=== PATIENT | female | born 1990 | race Caucasian/White ===

== ENCOUNTER 2019-12-07 05:36 | Outpatient (RCR) | payer MEDICAID ==
[~2019-12-07] VITALS: Ht 160 cm; Wt 79.7 kg
[~2019-12-07 05:36] MED LIST: AC500T PO; ACHD5005 PO; CETI10TA21 PO; FLUT9.9S NSEACH; NITR100C PO; ONDA8TAB9 PO; PEDI100T PO; PNV1CAPS42 PO
[2019-12-07 08:26] VITALS: BP 107/64
[2019-12-07 09:10] LABS: BASOPHILS % (AUTO) 0 % (0-10); EOSINOPHILS # (AUTO) 0.2 10^3/uL (0.0-0.3); EOSINOPHILS % (AUTO) 2 % (0-10); HEMATOCRIT 36 % (35-52); HEMOGLOBIN 11.8 G/DL (11.5-16.0); LYMPHOCYTES # (AUTO) 2.1 X 10^3 (1.0-4.0); LYMPHOCYTES % (AUTO) 25 % (12-44); MEAN CORPUSCULAR HEMOGLOBIN 30 PG (25-34); MEAN CORPUSCULAR HGB CONC 33 G/DL (32-36); MEAN CORPUSCULAR VOLUME 92 FL (80-99); MEAN PLATELET VOLUME 10.6 FL (7.4-10.4); MONOCYTES # (AUTO) 0.6 X 10^3 (0.0-1.0); MONOCYTES % (AUTO) 8 % (0-12); NEUTROPHILS # (AUTO) 5.5 X 10^3 (1.8-7.8); NEUTROPHILS % (AUTO) 65 % (42-75); PLATELET COUNT 294 10^3/uL (130-400); RED CELL DISTRIBUTION WIDTH 12.9 % (10.0-14.5); WHITE BLOOD COUNT 8.4 10^3/uL (4.3-11.0)
[2019-12-07] MEDS ORDERED: GUAI237L82 PO (09:20)
[2019-12-07] MEDS ORDERED: MULT-1136 PO (09:20)
[2019-12-07] MEDS ORDERED: CETI10TA21 PO (09:20)
[2019-12-07] MEDS ORDERED: DIPH25CA79 PO (09:20)
[2019-12-07] MEDS ORDERED: HYDR453. TP (09:20)
[2019-12-07] MEDS ORDERED: CARB15DR87 OT (09:20)
[2019-12-07] MEDS ORDERED: MONT10TA21 PO (09:20)
[2019-12-07] MEDS ORDERED: CALC500T7 PO (09:20)
[2019-12-07] MEDS ORDERED: ONDA8TAB6 PO (09:20)
[2019-12-07] MEDS ORDERED: LOPE-175 PO (09:20)
[2019-12-07] MEDS ORDERED: CYCL5TAB PO (09:20)
[2019-12-07] MEDS ORDERED: POLY17PO6 PO (09:20)
[2019-12-07] MEDS ORDERED: NEOM1OIN15 TP (09:20)
[2019-12-07] MEDS ORDERED: RT-ALBUINH IH (09:20)
[2019-12-07] MEDS ORDERED: VALA10007 PO (09:20)
[2019-12-07] MEDS ORDERED: IBUP200C11 PO (09:20)
[2019-12-07] MEDS ORDERED: MAGN400O7 PO (09:20)
[2019-12-07] MEDS ORDERED: ACET325C7 PO (09:20)
[2019-12-07] MEDS ORDERED: PROP1DRO7 OP (09:20)
[2019-12-07 09:30] LABS: BUN/CREATININE RATIO 15; CALCIUM 9.1 MG/DL (8.5-10.1); CARBON DIOXIDE 21 MMOL/L (21-32); CHLORIDE 111 MMOL/L (98-107); CREATININE SERUM 0.88 MG/DL (0.60-1.30); GFR ESTIMATED > 60; GLUCOSE 96 MG/DL (70-105); POTASSIUM 4.2 MMOL/L (3.6-5.0); SODIUM 141 MMOL/L (135-145)
[2019-12-09] MEDS ORDERED: TETRACAINESUCKERS MT (09:39)
[2019-12-09] MEDS ORDERED: DEXAINTSOL PO (09:39)
[2019-12-09] MEDS ORDERED: AMOX250S5 PO (09:39)
[2019-12-09] MEDS ORDERED: HYDR15SO8 PO (09:39)
== END 2019-12-07 09:52 | disposition home or self-care (01) ==
LOC: PREOP 05:36
PROVIDERS: ATTEND Otolaryngology Otolaryngology/Facial Plastic Surgery
DX: Z01.812 Encounter for preprocedural laboratory examination (principal); Z01.810 Encounter for preprocedural cardiovascular examination; J02.0 Streptococcal pharyngitis; Z20.828 Contact with and (suspected) exposure to other viral communicable diseases
CPT/HCPCS: 80048; 85025; 87081; 93005; U0002; 36415; 87635

== ENCOUNTER → 2019-12-09 | Day surgery (SDC) | payer MEDICAID ==
[~2019-12-09] VITALS: Ht 160 cm; Wt 79.7 kg
[2019-12-09] VITALS (11 sets, daily range): BP systolic 103–126; BP diastolic 43–75
[~2019-12-09] MED LIST changes: +ACET325C7 PO; +AMOX250S5 PO; +APAP 325 MG/10.15 ML LIQ (TYLENOL) UDC PO PRN; +CALC500T7 PO; +CARB15DR87 OT; +CYCL5TAB PO; +DEXAINTSOL PO; +DEXAMETHASONE 10 MG/ML (DECADRON) 1 ML VIAL ONE; +DIPH25CA79 PO; +GUAI237L82 PO; +HYDR15SO8 PO; +HYDR453. TP; +HYDROcodone/APAP 7.5MG-325 MG/15 ML (LORTAB) UDC ONE; +HYDROcodone/APAP 7.5MG-325 MG/15 ML (LORTAB) UDC PO PRN; +IBUP200C11 PO; +LIDOCAINE PF 2% 5 ML (XYLOCAINE) VIAL ONE; +LOPE-175 PO; +MAGN400O7 PO; +MEPERIDINE (DEMEROL) INJ 50 MG/ML IVP ONE; +MIDAZOLAM 2 MG/2 ML (VERSED) VIAL ONE; +MONT10TA21 PO; +MULT-1136 PO; +NEOM1OIN15 TP; +NS IV 1000 ML 1,000 ML IV SCH; +ONDA8TAB6 PO; +ONDANSETRON 4 MG/2 ML (SDV) Z0FRAN IVP PRN; +ONDANSETRON 4 MG/2 ML (SDV) Z0FRAN ONE; +POLY17PO6 PO; +PROP1DRO7 OP; +ROCURONIUM 10 MG/ML 5 ML SYRINGE IV ONE; +RT-ALBUINH IH; +SEVOFLURANE (ULTANE) 15 ML INHAL SOLN ONE; +TETRACAINESUCKERS MT; +VALA10007 PO; +fentaNYL INJECTION 100 MCG/2 ML AMP ONE; +morphine INJ 10 MG/ML 1ML (SYR OR VIAL) IVP ONE; +morphine INJ 10 MG/ML 1ML (SYR OR VIAL) ONE; +proPOfol 200 MG/20 ML (DIPRIVAN) VIAL IV ONE
[2019-12-09] MEDS: LACTATED RINGERS 1,000 ML IV PRN ×2 (06:21→09:03)
--- NOTE | 2019-12-09 07:00 | Progress Note-Pre Operative ---
Pre-Operative Progress Note H&P Reviewed The H&P was reviewed, patient examined and no changes noted. Date Seen by Provider: Dec 09, 2019 Time Seen by Provider: 06:30 Date H&P Reviewed: Dec 09, 2019 Time H&P Reviewed: 06:30 Pre-Operative Diagnosis: Chronic Tonsillitis, Tonsillar Hypertrophy RAFFI MURRAY MD Dec 09, 2019 07:00
--- NOTE | 2019-12-09 08:20 | Progress Note-Post Operative ---
Post-Operative Progess Note Surgeon (s)/General Matcher (s) Surgeon RAFFI MURRAY MD General Matcher n/a Pre-Operative Diagnosis Chronic Tonsillitis, Tonsillar Hypertrophy Post-Operative Diagnosis same Post-Op Procedure Note Date of Procedure: Dec 09, 2019 Name of Procedure Performed: Tonsillectomy Description & Findings Description and Findings: n/a Anesthesia Type get Estimated Blood Loss minimal Packing none. Specimen(s) collected/removed tonsils RAFFI MURRAY MD Dec 09, 2019 08:20
--- NOTE | 2019-12-09 08:57 | Anesthesia-General Post-Op ---
General Patient Condition Mental Status/LOC: Same as Preop Cardiovascular: Satisfactory Nausea/Vomiting: Absent Respiratory: Satisfactory Pain: Controlled Complications: Absent Post Op Complications Complications None Follow Up Care/Instructions Patient Instructions None needed. Anesthesia/Patient Condition Patient Condition Patient is doing well, no complaints, stable vital signs, no apparent adverse anesthesia problems. No complications reported per nursing. ALVIN GARCIA CRNA Dec 09, 2019 08:57
== END | disposition home or self-care (01) ==
LOC: SDC 06:03
PROVIDERS: ATTEND Otolaryngology Otolaryngology/Facial Plastic Surgery
DX: J35.01 Chronic tonsillitis (principal); K21.9 Gastro-esophageal reflux disease without esophagitis; K59.09 Other constipation; F89 Unspecified disorder of psychological development
CPT/HCPCS: 36415; 84703

== ENCOUNTER 2020-04-03 05:36 | Outpatient (RCR) | payer MEDICAID ==
[~2020-04-03] VITALS: Ht 162.6 cm; Wt 68.2 kg
[~2020-04-03 05:36] MED LIST changes: -APAP 325 MG/10.15 ML LIQ (TYLENOL) UDC PO PRN; -CETI10TA21 PO; +CETI10TA49 PO; -DEXAMETHASONE 10 MG/ML (DECADRON) 1 ML VIAL ONE; -HYDROcodone/APAP 7.5MG-325 MG/15 ML (LORTAB) UDC ONE; -HYDROcodone/APAP 7.5MG-325 MG/15 ML (LORTAB) UDC PO PRN; -LIDOCAINE PF 2% 5 ML (XYLOCAINE) VIAL ONE; -MEPERIDINE (DEMEROL) INJ 50 MG/ML IVP ONE; -MIDAZOLAM 2 MG/2 ML (VERSED) VIAL ONE; -NS IV 1000 ML 1,000 ML IV SCH; -ONDANSETRON 4 MG/2 ML (SDV) Z0FRAN IVP PRN; -ONDANSETRON 4 MG/2 ML (SDV) Z0FRAN ONE; -ROCURONIUM 10 MG/ML 5 ML SYRINGE IV ONE; -SEVOFLURANE (ULTANE) 15 ML INHAL SOLN ONE; +TRAM50TA3 PO; -fentaNYL INJECTION 100 MCG/2 ML AMP ONE; -morphine INJ 10 MG/ML 1ML (SYR OR VIAL) IVP ONE; -morphine INJ 10 MG/ML 1ML (SYR OR VIAL) ONE; -proPOfol 200 MG/20 ML (DIPRIVAN) VIAL IV ONE
== END 2020-04-03 11:00 | disposition home or self-care (01) ==
LOC: PREOP 05:36
PROVIDERS: ATTEND Otolaryngology Otolaryngology/Facial Plastic Surgery
DX: Z01.812 Encounter for preprocedural laboratory examination (principal); Z20.828 Contact with and (suspected) exposure to other viral communicable diseases
CPT/HCPCS: 87635

== ENCOUNTER 2020-04-06 05:56 | Day surgery (SDC) | payer MEDICAID ==
[~2020-04-06] VITALS: Ht 162.6 cm; Wt 68.2 kg
[2020-04-06] VITALS (10 sets, daily range): BP systolic 93–125; BP diastolic 42–75
[2020-04-06] MEDS ORDERED: LACTATED RINGERS 1,000 ML IV PRN (06:02)
[2020-04-06] MEDS ORDERED: ONDANSETRON 4 MG/2 ML (SDV) Z0FRAN ONE (06:56)
[2020-04-06] MEDS ORDERED: proPOfol 200 MG/20 ML (DIPRIVAN) VIAL IV ONE (06:56)
[2020-04-06] MEDS ORDERED: LIDOCAINE PF 2% 5 ML (XYLOCAINE) VIAL ONE (06:57)
[2020-04-06] MEDS ORDERED: fentaNYL INJECTION 100 MCG/2 ML AMP ONE (06:57)
[2020-04-06] MEDS ORDERED: MIDAZOLAM 2 MG/2 ML (VERSED) VIAL ONE (06:57)
[2020-04-06] MEDS ORDERED: SEVOFLURANE (ULTANE) 15 ML INHAL SOLN ONE (06:57)
--- NOTE | 2020-04-06 07:01 | Progress Note-Pre Operative ---
Pre-Operative Progress Note H&P Reviewed The H&P was reviewed, patient examined and no changes noted. Date Seen by Provider: Apr 06, 2020 Time Seen by Provider: 06:30 Date H&P Reviewed: Apr 06, 2020 Time H&P Reviewed: 06:30 Pre-Operative Diagnosis: RAFFI Sorensen MD Apr 06, 2020 07:01
--- NOTE | 2020-04-06 07:35 | Progress Note-Post Operative ---
Post-Operative Progess Note Surgeon (s)/Gas Singer (s) Surgeon RAFFI MURRAY MD Gas Singer n/a Pre-Operative Diagnosis Bilat LORIE Post-Operative Diagnosis same Post-Op Procedure Note Date of Procedure: Apr 06, 2020 Name of Procedure Performed: BMT Description & Findings Description and Findings: n/a Anesthesia Type lma Estimated Blood Loss minimal Packing none. Specimen(s) collected/removed none RAFFI MURRAY MD Apr 06, 2020 07:35
[2020-04-06] MEDS ORDERED: ONDANSETRON 4 MG/2 ML (SDV) Z0FRAN IVP PRN (07:45)
[2020-04-06] MEDS ORDERED: HYDROmorphone 2 MG/ML VIAL (DILAUDID) IV ONE (07:45)
[2020-04-06] MEDS ORDERED: APAP 325 MG/10.15 ML LIQ (TYLENOL) UDC PO PRN (07:45)
[2020-04-06] MEDS ORDERED: CIPR5DRO OP (08:24)
--- NOTE | 2020-04-06 08:38 | Anesthesia-General Post-Op ---
General Patient Condition Mental Status/LOC: Same as Preop Cardiovascular: Satisfactory Nausea/Vomiting: Absent Respiratory: Satisfactory Pain: Controlled Complications: Absent Post Op Complications Complications None Follow Up Care/Instructions Patient Instructions None needed. Anesthesia/Patient Condition Patient Condition Patient is doing well, no complaints, stable vital signs, no apparent adverse anesthesia problems. No complications reported per nursing. D/C home per [facility] Criteria: Yes EDGARD SPRING CRNA Apr 06, 2020 08:38
== END 2020-04-06 09:35 | disposition home or self-care (01) ==
LOC: SDC 05:56
PROVIDERS: ATTEND Otolaryngology Otolaryngology/Facial Plastic Surgery
DX: H65.23 Chronic serous otitis media, bilateral (principal); H69.93 Unspecified Eustachian tube disorder, bilateral; J45.909 Unspecified asthma, uncomplicated; Z88.5 Allergy status to narcotic agent
CPT/HCPCS: 84703; 87081

== ENCOUNTER → 2021-05-09 | Outpatient (CLI) | payer MEDICAID ==
[~2021-05-09] MED LIST changes: +CIPR5DRO OP; +GADOTERATE 0.5 MMOL/ML (CLARISCAN) 15 ML VIAL IV ONE; -NEOM1OIN15 TP; +NEOM1OIN19 TP
--- NOTE | 2021-05-09 14:10 | Diagnostic Imaging Report ---
PROCEDURE: MR imaging of the brain with and without contrast. TECHNIQUE: Multiplanar, multisequence MR imaging of the brain was performed with and without contrast. 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 Follow-up. COMPARISON: 03/09/2012. FINDINGS: Postsurgical changes of left suboccipital craniotomy and mass resection from the left CPA are visualized. A small amount of gliosis is seen surrounding the surgical bed. No acute ischemia, mass, or hemorrhage. A right frontal approach RABBIT FANCIER shunt is visualized with the tip terminating near the 3rd ventricle. No evidence of hydrocephalus. The ventricles, cortical sulci, and basilar cisterns are symmetric and unremarkable. The sellar and suprasellar regions have a normal appearance. There is distortion of the course of the left 7th and 8th cranial nerves. 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 No abnormal enhancement is seen to suggest mass recurrence. The right 7th and 8th cranial nerves are unremarkable. The bilateral Meckel's caves and cavernous sinuses have a normal appearance. A small amount of retained secretions are seen in the right maxillary sinus. Otherwise, the paranasal sinuses and mastoid air cells demonstrate normal signal characteristics. The globes and orbits are symmetric and unremarkable. IMPRESSION: 1. No acute ischemia, mass, or hemorrhage. 2. Postsurgical changes of left suboccipital craniotomy and mass resection from the left CPA. No evidence of mass recurrence. Scar tissue is seen within the left internal auditory canal resulting in distortion of the left 7th and 8th cranial nerves. 3. Right frontal approach RABBIT FANCIER shunt with the tip near the 3rd ventricle. No evidence of hydrocephalus. Dictated by: Dictated on workstation # [id number]
== END ==
LOC: RAD 13:15
PROVIDERS: ATTEND Otolaryngology Otolaryngology/Facial Plastic Surgery
DX: G52.7 Disorders of multiple cranial nerves (principal); Z98.890 Other specified postprocedural states; Z85.828 Personal history of other malignant neoplasm of skin
CPT/HCPCS: 70553

== ENCOUNTER 2021-06-03 10:28 | Emergency (ER) | payer MEDICAID ==
[~2021-06-03] VITALS: Ht 160 cm; Wt 79.0 kg
[~2021-06-03 10:28] MED LIST changes: -GADOTERATE 0.5 MMOL/ML (CLARISCAN) 15 ML VIAL IV ONE
[2021-06-03] MEDS ORDERED: FAMOTIDINE 20 MG (PEPCID) TABLET PO STA (10:42)
[2021-06-03] MEDS ORDERED: LIDOCAINE 2% VISCOUS 15 ML UDC PO ONE (10:45)
[2021-06-03] MEDS ORDERED: ANTACID SUSP 30 ML UDC (MYLANTA) PO ONE (10:45)
--- NOTE | 2021-06-03 10:46 | ED Chest Pain ---
General Stated Complaint: HIGH HR,CP Source: patient Exam Limitations: no limitations History of Present Illness Date Seen by Provider: Jun 03, 2021 Time Seen by Provider: 10:31 Initial Comments Patient the ER by private conveyance with chief complaint of chest pain, heart racing out of 100 210 for the past week. Malaise but no body aches fevers chills nausea vomiting diarrhea. No early onset coronary heart disease and primary family. No personal history of coronary disease. No history of hypertension hyperlipidemia diabetes or smoking. She says it feels like a burning-like acid reflux. Says is better when she lays on her left side. She has not taken any antacids any Tylenol any ibuprofen or seen anybody to have this worked up yet. Allergies and Home Medications Allergies Coded Allergies: hydrocodone (Verified Allergy, Unknown, Rash, 03/30/20) Patient Home Medication List Home Medication List Reviewed: Yes Acetaminophen (Tylenol) 325 Mg Capsule, 650 MG PO Q6H PRN for PAIN-MILD (1-4), (Reported) Entered as Reported by: YI CHAPMAN on 12/07/19 0920 Albuterol Sulfate (Proair Hfa) 1 Puff Puff, 2 PUFF IH Q4H PRN for SHORTNESS OF BREATH, (Reported) Entered as Reported by: YI CHAPMAN on 12/07/19 0920 Calcium Carbonate (Tums) 200 Mg Tab.chew, 400 MG PO PRN, (Reported) Entered as Reported by: YI CHAPMAN on 12/07/19 0920 Cetirizine HCl (Zyrtec) 10 Mg Tablet, 10 MG PO DAILY, (Reported) Entered as Reported by: JUAN C SWARTZ on 03/30/20 1232 Ciprofloxacin HCl (Ciloxan) 5 Ml Drops, 3 DROPS OP BID Prescribed by: FRANCK MARCUM on 04/06/20 0824 Cyclobenzaprine HCl (Cyclobenzaprine HCl) 5 Mg Tablet, 5 MG PO Q8H PRN for SPASMS, (Reported) Entered as Reported by: YI CHAPMAN on 12/07/19 0920 Diphenhydramine HCl (Benadryl) 25 Mg Capsule, 25-50 MG PO Q6H PRN for CONGESTION, (Reported) Entered as Reported by: YI CHAPMAN on 12/07/19919 Guaifenesin/Dextromethorphan (Robitussin Cough-Chest Dm Liq) 237 Ml Liquid, 237 ML PO Q4H PRN for COUGH, (Reported) Entered as Reported by: YI CHAPMAN on 12/07/19919 Hydrocortisone (Hydrocortisone) 453.6 Gm Cream..g., 453.6 GM TP PRN, (Reported) Entered as Reported by: YI CHAPMAN on 12/07/19919 Hydroxyzine HCl (Hydroxyzine HCl) 25 Mg Tablet, 25 MG PO Q6H PRN for ANXIETY Prescribed by: EARLENE GUIDO on 06/03/21 1315 Loperamide HCl (Imodium A-D) 2 Mg Capsule, 2-4 MG PO PRN, (Reported) Entered as Reported by: YI CHAPMAN on 12/07/19919 Magnesium Hydroxide (Milk of Magnesia) 400 Mg/5 Ml Oral.susp, 400 MG PO PRN, (Reported) Entered as Reported by: YI CHAPMAN on 12/07/19919 Montelukast Sodium (Singulair) 10 Mg Tablet, 10 MG PO HS, (Reported) Entered as Reported by: YI CHAPMAN on 12/07/19919 Multivitamin (Multivitamin) 1 Each Tablet, 1 EACH PO DAILY, (Reported) Entered as Reported by: YI CHAPMAN on 12/07/19919 Neomycin/Bacitracin/Polymyxinb (Triple Antibiotic Ointment Pkt) 1 Each Oint. pack, 1 EACH TP PRN, (Reported) Entered as Reported by: YI CHAPMAN on 12/07/19919 Ondansetron HCl (Zofran) 8 Mg Tablet, 8 MG PO Q6H PRN for NAUSEA/VOMITING, (Reported) Entered as Reported by: YI CHAPMAN on 12/07/19919 Polyethylene Glycol 3350 (Miralax) 17 Gm Powd.pack, 17 GM PO DAILY PRN for CONSTIPATION-1ST LINE, (Reported) Entered as Reported by: YI CHAPMAN on 7/15/20 0920 Propylene Glycol/Peg 400/Pf (Systane 0.3-0.4% Eye Drops) 1 Each Droperette, 1 EACH OP PRN, (Reported) Entered as Reported by: YI CHAPMAN on 12/07/19 0920 Tramadol HCl (Tramadol HCl) 50 Mg Tablet, 50 MG PO Q8H PRN for PAIN-MODERATE (5- 7), (Reported) Entered as Reported by: JUAN C SWARTZ on 03/30/20 1232 Valacyclovir HCl (Valacyclovir) 1,000 Mg Tablet, 1,000 MG PO DAILY, (Reported) Entered as Reported by: YI CHAPMAN on 12/07/19 0920 Review of Systems Review of Systems Constitutional: No chills, No diaphoresis EENTM: No Blurred Vision, No Double Vision Respiratory: Denies Cough, Denies Orthopnea; Shortness of Air Cardiovascular: See HPI, Chest Pain; Denies Edema, Denies Irregular Heart Rate, Denies Palpitations, Denies Syncope Gastrointestinal: Denies Abdominal Pain, Denies Constipated, Denies Diarrhea, Denies Nausea Genitourinary: Denies Burning, Denies Discharge Musculoskeletal: No back pain, No joint pain Skin: No pruritus, No rash Psychiatric/Neurological: Denies Anxiety, Denies Depressed All Other Systems Reviewed Negative Unless Noted: Yes Past Gyonyoq-Watfkb-Zthzqt Hx Patient Social History Tobacco Use?: No Use of E-Cig and/or Vaping dev: No Substance use?: No Seasonal Allergies Seasonal Allergies: Yes Past Medical History Surgeries: Yes (brain shunt, 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 side of brain) Gallbladder, Tonsillectomy Respiratory: Yes Asthma Currently Using CPAP: No Currently Using BIPAP: No Cardiac: No (possible heart murmur) 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 Reproductive Disorders: No Sexually Transmitted Disease: No HIV/AIDS: No Genitourinary: No Gastrointestinal: Yes Chronic Constipation Musculoskeletal: No Endocrine: No HEENT: Yes (GLASSES) Chronic Ear Infection Loss of Vision: Denies Hearing Impairment: Denies Cancer: No 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 8.0oz. 67.416264tb; 25.79 BMI Method:Stated General Appearance: WD/WN, Anxious HEENT: PERRL/EOMI, TMs Normal, Pharynx Normal, Moist Mucous Membranes Neck: Full Range of Motion, Normal Inspection Respiratory: Chest Non Tender, Lungs Clear, Normal Breath Sounds, No Accessory Muscle Use, No Respiratory Distress Cardiovascular: Regular Rate, Rhythm (80-105), No Edema, Normal Peripheral Pulses Gastrointestinal: Normal Bowel Sounds, Non Tender, Soft Extremity: Normal Capillary Refill, Normal Inspection, No Pedal Edema Neurologic/Psychiatric: Alert, Oriented x3 Skin: Normal Color, Warm/Dry Progress/Results/Core Measures Results/Orders Lab Results Laboratory Tests Test 06/03/21 10:39 06/03/21 10:55 06/03/21 11:55 Range/Units Influenza Type A (RT-PCR) Not Detected Not Detecte Influenza Type B (RT-PCR) Not Detected Not Detecte SARS-CoV-2 RNA (RT-PCR) Not Detected Not Detecte White Blood Count 9.0 4.3-11.0 10^3/uL Red Blood Count 4.17 3.80-5.11 10^6/uL Hemoglobin 12.5 11.5-16.0 g/dL Hematocrit 39 35-52 % Mean Corpuscular Volume 94 80-99 fL Mean Corpuscular Hemoglobin 30 25-34 pg Mean Corpuscular Hemoglobin Concent 32 32-36 g/dL Red Cell Distribution Width 12.1 10.0-14.5 % Platelet Count 297 130-400 10^3/uL Mean Platelet Volume 9.9 9.0-12.2 fL Immature Granulocyte % (Auto) 0 % Neutrophils (%) (Auto) 70 42-75 % Lymphocytes (%) (Auto) 21 12-44 % Monocytes (%) (Auto) 8 0-12 % Eosinophils (%) (Auto) 1 0-10 % Basophils (%) (Auto) 0 0-10 % Neutrophils # (Auto) 6.2 1.8-7.8 10^3/uL Lymphocytes # (Auto) 1.8 1.0-4.0 10^3/uL Monocytes # (Auto) 0.7 0.0-1.0 10^3/uL Eosinophils # (Auto) 0.1 0.0-0.3 10^3/uL Basophils # (Auto) 0.0 0.0-0.1 10^3/uL Immature Granulocyte # (Auto) 0.0 0.0-0.1 10^3/uL Sodium Level 137 135-145 MMOL/L Potassium Level 4.1 3.6-5.0 MMOL/L Chloride Level 104 98-107 MMOL/L Carbon Dioxide Level 23 21-32 MMOL/L Anion Gap 10 5-14 MMOL/L Blood Urea Nitrogen 10 7-18 MG/DL Creatinine 0.83 0.60-1.30 MG/DL Estimat Glomerular Filtration Rate 81 BUN/Creatinine Ratio 12 Glucose Level 135 H 70-105 MG/DL Calcium Level 9.3 8.5-10.1 MG/DL Corrected Calcium 9.2 8.5-10.1 MG/DL Total Bilirubin 0.2 0.1-1.0 MG/DL Aspartate Amino Transf (AST/SGOT) 18 5-34 U/L Alanine Aminotransferase (ALT/SGPT) 22 0-55 U/L Alkaline Phosphatase 109 40-136 U/L Troponin I < 0.028 <0.028 NG/ML C-Reactive Protein High Sensitivity 0.63 H 0.00-0.50 MG/DL Total Protein 8.2 6.4-8.2 GM/DL Albumin 4.1 3.2-4.5 GM/DL Serum Test, Qualitative NEGATIVE NEGATIVE Urine Color YELLOW Urine Clarity CLEAR Urine pH 5.5 5-9 Urine Specific [place] 1.010 L 1.016-1.022 Urine Protein NEGATIVE NEGATIVE Urine Glucose (UA) NEGATIVE NEGATIVE Urine Ketones NEGATIVE NEGATIVE Urine Nitrite NEGATIVE NEGATIVE Urine Bilirubin NEGATIVE NEGATIVE Urine Urobilinogen 0.2 < = 1.0 MG/DL Urine Leukocyte Esterase TRACE H NEGATIVE Urine RBC (Auto) NEGATIVE NEGATIVE Urine RBC NONE /HPF Urine WBC 2-5 /HPF Urine Squamous Epithelial Cells 2-5 /HPF Urine Crystals NONE /LPF Urine Bacteria NEGATIVE /HPF Urine Casts NONE /LPF Urine Mucus NEGATIVE /LPF Urine Culture Indicated NO Urine Opiates Screen NEGATIVE NEGATIVE Urine Oxycodone Screen NEGATIVE NEGATIVE Urine Methadone Screen NEGATIVE NEGATIVE Urine Propoxyphene Screen NEGATIVE NEGATIVE Urine Barbiturates Screen NEGATIVE NEGATIVE Ur Tricyclic Antidepressants Screen NEGATIVE NEGATIVE Urine Phencyclidine Screen NEGATIVE NEGATIVE Urine Amphetamines Screen NEGATIVE NEGATIVE Urine Methamphetamines Screen NEGATIVE NEGATIVE Urine Benzodiazepines Screen NEGATIVE NEGATIVE Urine Cocaine Screen NEGATIVE NEGATIVE Urine Cannabinoids Screen NEGATIVE NEGATIVE My Orders Orders - EARLENE GUIDO Continuous Ekg Monitoring (06/03/21 10:42) Ekg Tracing (06/03/21 10:42) Cbc With Automated Diff (06/03/21 10:42) Comprehensive Metabolic Panel (06/03/21 10:42) Hs C Reactive Protein (06/03/21 10:42) Chest 1 View, Ap/Pa Only (06/03/21 10:42) Covid 19 Inhouse Test (06/03/21 10:42) Influenza A And B By Pcr (06/03/21 10:42) Troponin I Vladislav (06/03/21 10:42) Hcg,Qualitative Serum (06/03/21 10:42) Lidocaine 2% Viscous 15 Ml (Xylocaine Vi (06/03/21 10:45) Famotidine Tablet (Pepcid Tablet) (06/03/21 10:42) Antacid Suspension (Mylanta Suspension (06/03/21 10:45) Ua Culture If Indicated (06/03/21 11:43) Urine Bedside (06/03/21 11:43) Drug Screen Stat (Urine) (06/03/21 11:43) Medications Given in ED Vital Signs/I&O 06/03/21 06/03/21 10:40 13:31 Temp 36.3 Pulse 97 78 Resp 16 16 B/P (MAP) 131/88 (102) 114/72 Pulse Ox 97 98 O2 Delivery Room Air Room Air Progress Progress Note : Time: 10:45 Progress Note Patient's heart rates in the 80s when she arrives. We will keep her on the monitor get an EKG do some labs by blood draw and get a GI cocktail to her. COVID and influenza swab; she is in no acute distress. Initial ECG Impression Date: Jun 03, 2021 Initial ECG Impression Time: 10:46 Initial ECG Rate: 86 Initial ECG Rhythm: Normal Sinus Initial ECG Intervals: Normal Initial ECG Impression: Normal Initial ECG Comparisson: No Previous ECG Available Comment Normal sinus rhythm. Diagnostic Imaging Diagonstic Imaging: Xray Plain Films/CT/US/NM/MRI: chest Comments [facility]. [place], [place] NAME: FERMNI GARCIA [facility] REC#: [id number] PT STATUS: REG ER : 1990 PHYSICIAN: EARLENE GUIDO MD ADMIT DATE: 06/03/21/ER Draft Date of Exam:06/03/21 CHEST 1 VIEW, AP/PA ONLY INDICATION: Chest pain for one week. TIME OF EXAM: 11:19 AM No prior studies available for comparison. Heart size normal. Tubing overlies the right hemithorax but lungs are clear. The pulmonary vascularity is normal. No infiltrates, effusion or pneumothorax is detected. IMPRESSION: No acute cardiopulmonary process is detected. Dictated on workstation # [id number] Dict: 06/03/21 1135 Trans: 06/03/21 1139 CV [id number] Interpreted by: CLAIRE VENTURA MD Electronically signed by: Reviewed: Reviewed by Me Departure Impression Primary Impression: Anxiety Additional Impression: Chest pain Qualified Codes: R07.9 - Chest pain, unspecified Disposition: HOME, SELF-CARE Condition: Stable Departure-Patient Inst. Decision time for Depature: 13:09 Referrals: MIKE ROCK MD (PCP/Family) Primary Care Physician Patient Instructions: Chest Pain That Is Not Caused by the Heart (DC), Anxiety, Adult ED Add. Discharge Instructions: I could not discover an emergent reason for your chest pain or fast heart rate. While you were here your heart rate has been normal in the 80s. You have not had any dysrhythmias noted on the monitor. I suggest you call your primary care doctor and make a follow-up appointment to see if may be a monitor study or some other testing would be reasonable to do. If you have fast heart rate and feel anxious again you may take Vistaril 1 tablet every 6 hours as necessary to help slow you down. Scripts Hydroxyzine HCl (Hydroxyzine HCl) 25 Mg Tablet 25 MG PO Q6H PRN for ANXIETY, #12 TAB 0 Refills Prov: EARLENE GUIDO 06/03/21 Work/School Note: Work Release Form Date Seen in the Emergency Department: Jun 03, 2021 Return to Work: Jun 04, 2021 Restrictions: No Restrictions Copy Copies To 1: MIKE ROCK MD, TITUS J Jun 03, 2021 10:46
[2021-06-03 11:03] LABS: BASOPHILS % (AUTO) 0 % (0-10); EOSINOPHILS # (AUTO) 0.1 10^3/uL (0.0-0.3); EOSINOPHILS % (AUTO) 1 % (0-10); HEMATOCRIT 39 % (35-52); HEMOGLOBIN 12.5 g/dL (11.5-16.0); LYMPHOCYTES # (AUTO) 1.8 10^3/uL (1.0-4.0); LYMPHOCYTES % (AUTO) 21 % (12-44); MEAN CORPUSCULAR HEMOGLOBIN 30 pg (25-34); MEAN CORPUSCULAR HGB CONC 32 g/dL (32-36); MEAN CORPUSCULAR VOLUME 94 fL (80-99); MEAN PLATELET VOLUME 9.9 fL (9.0-12.2); MONOCYTES # (AUTO) 0.7 10^3/uL (0.0-1.0); MONOCYTES % (AUTO) 8 % (0-12); NEUTROPHILS # (AUTO) 6.2 10^3/uL (1.8-7.8); NEUTROPHILS % (AUTO) 70 % (42-75); PLATELET COUNT 297 10^3/uL (130-400)
[2021-06-03 11:19] LABS: ALBUMIN 4.1 GM/DL (3.2-4.5)
[2021-06-03 11:20] LABS: CHLORIDE 104 MMOL/L (98-107); POTASSIUM 4.1 MMOL/L (3.6-5.0); SODIUM 137 MMOL/L (135-145)
[2021-06-03 11:21] LABS: CALCIUM 9.3 MG/DL (8.5-10.1)
[2021-06-03 11:22] LABS: GLUCOSE 135 MG/DL (70-105); TOTAL PROTEIN 8.2 GM/DL (6.4-8.2)
[2021-06-03 11:23] LABS: CARBON DIOXIDE 23 MMOL/L (21-32)
[2021-06-03 11:24] LABS: BILIRUBIN,TOTAL 0.2 MG/DL (0.1-1.0)
[2021-06-03 11:25] LABS: ALKALINE PHOSPHATASE 109 U/L (40-136)
[2021-06-03 11:26] LABS: CREATININE SERUM 0.83 MG/DL (0.60-1.30); GFR ESTIMATED 81
[2021-06-03 11:27] LABS: BUN/CREATININE RATIO 12
[2021-06-03 11:29] LABS: ALANINE AMINOTRANSFERASE 22 U/L (0-55)
--- NOTE | 2021-06-03 11:40 | Diagnostic Imaging Report ---
INDICATION: Chest pain for one week. TIME OF EXAM: 11:19 AM No prior studies available for comparison. Heart size normal. Tubing overlies the right hemithorax but lungs are clear. The pulmonary vascularity is normal. No infiltrates, effusion or pneumothorax is detected. IMPRESSION: No acute cardiopulmonary process is detected. Dictated by: Dictated on workstation # [id number]
[2021-06-03 12:00] LABS: BILIRUBIN,URINE NEGATIVE (NEGATIVE); CLARITY,URINE CLEAR; COLOR,URINE YELLOW; GLUCOSE, URINE (UA) NEGATIVE (NEGATIVE); KETONES,URINE NEGATIVE (NEGATIVE); LEUKOCYTE ESTERASE ,URINE TRACE (NEGATIVE); NITRITE,URINE NEGATIVE (NEGATIVE); PH,URINE 5.5 (5-9); PROTEIN,URINE NEGATIVE (NEGATIVE)
[2021-06-03 12:13] LABS: BACTERIA,URINE NEGATIVE /HPF
[2021-06-03 12:16] LABS: AMPHETAMINE SCREEN, URINE NEGATIVE (NEGATIVE); BARBITURATE SCREEN URINE NEGATIVE (NEGATIVE); BENZODIAZEPINES SCREEN URINE NEGATIVE (NEGATIVE); CANNABINOID SCREEN, URINE NEGATIVE (NEGATIVE); COCAINE SCREEN URINE NEGATIVE (NEGATIVE); METHADONE STAT NEGATIVE (NEGATIVE); METHAMPHETAMINE SCREEN URINE S NEGATIVE (NEGATIVE); OPIATE SCREEN URINE NEGATIVE (NEGATIVE); OXYCODONE STAT NEGATIVE (NEGATIVE); PROPOXYPHENE STAT NEGATIVE (NEGATIVE); TRICYCLIC ANTIDEPRESSANTS SCRE NEGATIVE (NEGATIVE)
[2021-06-03] MEDS ORDERED: HYDR-700 PO (13:15)
[2021-06-03 13:31] VITALS: BP 114/72
== END 2021-06-03 13:27 | disposition home or self-care (01) ==
LOC: EDUNIT# 10:28 → ER 10:30
DX: F41.9 Anxiety disorder, unspecified (principal); R07.9 Chest pain, unspecified; J45.909 Unspecified asthma, uncomplicated; G51.0 Bell's palsy; Z20.822 Contact with and (suspected) exposure to COVID-19
CPT/HCPCS: 36415; 71045; 80053; 80306; 81000; 84484; 84703; 85025; 86141; 87636; 93005

== ENCOUNTER → 2022-03-13 | Outpatient (CLI) | payer MEDICAID ==
[~2022-03-13] MED LIST changes: +HYDR-700 PO
--- NOTE | 2022-03-13 12:17 | Diagnostic Imaging Report ---
EXAMINATION: CT abdomen and pelvis without contrast. TECHNIQUE: Multiple contiguous axial images were obtained through the abdomen and pelvis without the use of intravenous contrast. All CT scans use one or more of the following dose optimizing techniques: automated exposure control, MA and/or KvP adjustment based on patient size and exam type or iterative reconstruction. HISTORY: Right flank pain. COMPARISON: None available. FINDINGS: Lung bases: The lung bases are clear. Solid organs: The liver is normal. The gallbladder is surgically absent. There is no biliary ductal dilation. Pancreas is normal. Spleen is normal. Adrenal glands are normal. The kidneys are normal without visualized calculus or hydronephrosis. Bowel: The stomach and small bowel are normal without obstruction. The colon and appendix are normal. Peritoneum: There is trace free fluid in the pelvis. No free air. A catheter is present within the right anterior abdomen. No suspicious lymphadenopathy. Vasculature: Normal without aneurysm. Musculoskeletal: No suspicious osseous lesion or compression fracture. Bilateral L5 pars defects. Pelvis: The uterus and adnexa are normal. The urinary bladder is normal. IMPRESSION: 1. No acute abnormality in the abdomen or pelvis. 2. No visualized renal calculus or hydronephrosis. Dictated by: Dictated on workstation # [id number]
== END ==
LOC: RAD 11:15
PROVIDERS: ATTEND Family Medicine
DX: R10.9 Unspecified abdominal pain (principal); R31.9 Hematuria, unspecified
CPT/HCPCS: 74176

== ENCOUNTER → 2022-05-29 | Outpatient (CLI) | payer MEDICAID ==
[~2022-05-29] MED LIST changes: +ALBU8.5H6 IH; -RT-ALBUINH IH
--- NOTE | 2022-05-29 13:57 | Diagnostic Imaging Report ---
INDICATION: Back pain AP and lateral views of the lumbar spine are obtained. Thoracic vertebrae are normal in height and alignment. No fracture or subluxation is seen. There is no significant disc space narrowing. IMPRESSION: Negative thoracic spine series. Dictated by: Dictated on workstation # [id number]
== END ==
LOC: RAD 09:49
PROVIDERS: ATTEND Nurse Practitioner Family
DX: M54.6 Pain in thoracic spine (principal)
CPT/HCPCS: 72072